=== PATIENT | female | born 1960 | race Caucasian/White ===

== ENCOUNTER 2018-06-07 02:18 | Outpatient (RCR) | payer OTHER, SELFPAY ==
[2018-06-07] MEDS: Normal Saline Flush 10 ML SYR IVP (13:30)
[2018-06-07 13:54] LABS: Abs Immature Grans 0.01 k/cumm (0.0-0.09); Absolute Basophil Count 0.04 k/cumm (0.0-0.2); Absolute Eosinophil Count 0.11 k/cumm (0.0-0.7); Absolute Lymphocyte Count 2.66 k/cumm (1.2-3.4); Absolute Monocyte Count 0.27 k/cumm (0.11-0.7); Absolute Neutrophil Count 3.75 k/cumm (1.2-6.7); Basophils % 0.6; Eosinophils % 1.6; HCT 34.2 % (36.0-46.0); HGB 11.3 g/dL (12.0-15.5); Immature Grans % 0.1; Lymphocytes % 38.9; Mean Corpuscular Hemoglobin 32.4 pg (27.0-33.0); Mean Platelet Volume 8.7 fL (8.0-11.0); Monocytes % 3.9; Neutrophils % 54.9; Platelet Count 186 x1000/uL (130-400); RBC 3.49 m/cumm (4.00-5.20); RBC Distribution Width 12.1 % (11.7-14.6); White Blood Cell Count 6.84 k/cumm (4.4-10.8)
[2018-06-07 14:07] LABS: ALT 22 U/L (12-78); AST 18 U/L (15-37); Albumin 3.7 g/dL (3.4-5.0); Alkaline Phosphatase 137 U/L (46-116); Anion Gap 6.9 mmol/L (3-11); BUN 21 mg/dL (7-18); Bilirubin, Total 0.2 mg/dL (0.2-1.0); CO2 29.1 mmol/L (21.0-32.0); CREATININE 0.71 mg/dL (0.55-1.02); Calcium 8.8 mg/dL (8.5-10.1); Chloride 104 mmol/L (98-107); Glucose 109 mg/dL (70-100); Potassium 3.9 mmol/L (3.5-5.1); Sodium 140 mmol/L (136-145); Total Protein 6.6 g/dL (6.4-8.2)
== END 2018-06-15 ==
LOC: INF 02:18
PROVIDERS: PCP Registered Nurse; Visit Provider Internal Medicine Medical Oncology
DX: C56.1 Malignant neoplasm of right ovary (principal); Z45.2 Encounter for adjustment and management of vascular access device
CPT/HCPCS: 36591; 80053; 85025

== ENCOUNTER 2021-06-10 03:44 | Outpatient (CLI) | payer OTHER, SELFPAY ==
[2021-06-10 08:35] LABS: Abs Immature Grans 0.01 10^3/uL (0.0-0.06); Absolute Basophil Count 0.02 10^3/uL (0.0-0.2); Absolute Eosinophil Count 0.04 10^3/uL (0.0-0.7); Absolute Lymphocyte Count 1.38 10^3/uL (1.2-3.4); Absolute Monocyte Count 0.35 10^3/uL (0.1-0.8); Absolute Neutrophil Count 2.25 10^3/uL (1.2-6.7); Basophils % 0.5; HCT 34.1 % (36.0-46.0); HGB 11.3 g/dL (11.2-15.7); Immature Grans % 0.2; Lymphocytes % 34.1; MCH 31.7 pg (27.0-33.0); MCHC 33.1 % (32.0-36.0); MCV 95.8 fL (80-95); MPV 8.3 fL (8.0-11.0); Monocytes % 8.6; Neutrophils % 55.6; Nucleated RBC 0 %; Platelet Count 221 10^3/uL (130-400); RBC 3.56 10^6/uL (3.93-5.22); RDW 15.4 % (11.7-14.6); RDW-SD 55.1 fL; WBC 4.05 10^3/uL (4.4-10.8)
[2021-06-10 08:43] LABS: Magnesium 1.7 mg/dL (1.8-2.4)
[2021-06-10 08:49] LABS: ALT 32 U/L (14-59); AST 34 U/L (15-37); Albumin 3.9 g/dL (3.4-5.0); Alkaline Phosphatase 284 U/L (46-116); Anion Gap 6.1 mmol/L (3-11); BUN 18 mg/dL (7-18); Bilirubin, Total 0.3 mg/dL (0.2-1.0); CO2 29.9 mmol/L (21.0-32.0); CREATININE 0.8 mg/dL (0.55-1.02); Calcium 9.3 mg/dL (8.5-10.1); Chloride 106 mmol/L (98-107); Glucose 99 mg/dL (74-106); Potassium 4.3 mmol/L (3.5-5.1); Sodium 142 mmol/L (136-145); Total Protein 6.9 g/dL (6.4-8.2)
== END 2021-06-10 03:45 | disposition home or self-care (01) ==
LOC: LBO 03:45
PROVIDERS: PCP Registered Nurse; Visit Provider Internal Medicine Medical Oncology
DX: C78.7 Secondary malignant neoplasm of liver and intrahepatic bile duct (principal)
CPT/HCPCS: 36415; 80053; 83735; 85025

== ENCOUNTER 2021-07-05 14:03 | Outpatient (CLI) | payer OTHER, SELFPAY ==
[2021-07-05 14:10] LABS: Abs Immature Grans 0.01 10^3/uL (0.0-0.06); Absolute Basophil Count 0.01 10^3/uL (0.0-0.2); Absolute Lymphocyte Count 2.04 10^3/uL (1.2-3.4); Absolute Monocyte Count 0.26 10^3/uL (0.1-0.8); Absolute Neutrophil Count 2.14 10^3/uL (1.2-6.7); Basophils % 0.2; Eosinophils % 2.2; HCT 29.5 % (36.0-46.0); HGB 10.3 g/dL (11.2-15.7); Immature Grans % 0.2; Lymphocytes % 44.7; MCH 33.1 pg (27.0-33.0); MCHC 34.9 % (32.0-36.0); MCV 94.9 fL (80-95); MPV 9.1 fL (8.0-11.0); Monocytes % 5.7; Nucleated RBC 0 %; Platelet Count 107 10^3/uL (130-400); RBC 3.11 10^6/uL (3.93-5.22); RDW 13.7 % (11.7-14.6); RDW-SD 47.7 fL; WBC 4.56 10^3/uL (4.4-10.8)
[2021-07-05 14:23] LABS: Magnesium 1.6 mg/dL (1.8-2.4)
[2021-07-05 14:26] LABS: ALT 53 U/L (14-59); AST 36 U/L (15-37); Albumin 3.7 g/dL (3.4-5.0); Alkaline Phosphatase 406 U/L (46-116); Anion Gap 7.1 mmol/L (3-11); BUN 24 mg/dL (7-18); Bilirubin, Total 0.2 mg/dL (0.2-1.0); CO2 29.9 mmol/L (21.0-32.0); CREATININE 0.9 mg/dL (0.55-1.02); Calcium 9.3 mg/dL (8.5-10.1); Chloride 107 mmol/L (98-107); Glucose 114 mg/dL (74-106); Potassium 3.6 mmol/L (3.5-5.1); Sodium 144 mmol/L (136-145); Total Protein 6.7 g/dL (6.4-8.2)
== END 2021-07-05 14:04 | disposition home or self-care (01) ==
LOC: LBO 14:06
PROVIDERS: PCP Registered Nurse; Visit Provider Internal Medicine Medical Oncology
DX: C78.7 Secondary malignant neoplasm of liver and intrahepatic bile duct (principal)
CPT/HCPCS: 36415; 80053; 83735; 85025

== ENCOUNTER 2021-07-26 01:47 | Outpatient (CLI) | payer OTHER, SELFPAY ==
[2021-07-26 13:13] LABS: Abs Immature Grans 0.01 10^3/uL (0.0-0.06); Absolute Basophil Count 0.02 10^3/uL (0.0-0.2); Absolute Eosinophil Count 0.02 10^3/uL (0.0-0.7); Absolute Lymphocyte Count 2.12 10^3/uL (1.2-3.4); Absolute Monocyte Count 0.43 10^3/uL (0.1-0.8); Basophils % 0.5; Eosinophils % 0.5; HCT 30.8 % (36.0-46.0); HGB 10.3 g/dL (11.2-15.7); Immature Grans % 0.2; Lymphocytes % 49.3; MCH 33.7 pg (27.0-33.0); MCHC 33.4 % (32.0-36.0); MCV 100.7 fL (80-95); MPV 8.8 fL (8.0-11.0); Neutrophils % 39.5; Nucleated RBC 0 %; Platelet Count 112 10^3/uL (130-400); RBC 3.06 10^6/uL (3.93-5.22); RDW 13.3 % (11.7-14.6); RDW-SD 48.9 fL
[2021-07-26 13:35] LABS: ALT 40 U/L (14-59); AST 43 U/L (15-37); Alkaline Phosphatase 292 U/L (46-116); Anion Gap 7.9 mmol/L (3-11); BUN 20 mg/dL (7-18); Bilirubin, Total 0.2 mg/dL (0.2-1.0); CO2 30.1 mmol/L (21.0-32.0); CREATININE 0.7 mg/dL (0.55-1.02); Calcium 9.2 mg/dL (8.5-10.1); Chloride 107 mmol/L (98-107); Glucose 91 mg/dL (74-106); Magnesium 1.8 mg/dL (1.8-2.4); Potassium 3.9 mmol/L (3.5-5.1); Sodium 145 mmol/L (136-145); Total Protein 6.9 g/dL (6.4-8.2)
== END 2021-07-26 01:48 | disposition home or self-care (01) ==
PROVIDERS: PCP Registered Nurse; Visit Provider Internal Medicine Medical Oncology
DX: C78.7 Secondary malignant neoplasm of liver and intrahepatic bile duct (principal)
CPT/HCPCS: 36415; 80053; 83735; 85025